=== PATIENT | female | born 2000 | race African-American/Black ===

== ENCOUNTER 2019-05-14 22:14 | Emergency (ER) | payer OTHER ==
[~2019-05-14] VITALS: Ht 154.9 cm; Wt 53.6 kg
--- NOTE | 2019-05-15 | PHYS DOC ---
Past Medical History Past Medical History: No Pertinent History (HECTOR GAONA APRN) Past Surgical History: No Surgical History (HECTOR GAONA APRN) Smoking Status: Never Smoker Alcohol Use: None Drug Use: None (HECTOR GAONA APRN) Attending Signature I have participated in the care of this patient and I have reviewed and agree with all pertinent clinical information above including history, exam, and recommendations. (WILBUR KOO MD) Adult General Chief Complaint Chief Complaint: NAUSEA/VOMITING/[facility] HPI Patient is a 18 year old female who presents with nausea during . The patient states that she is 6 weeks and has been getting OB care an unknown clinic. She states she has been on Zofran but is still getting nausea. Denies any other complaints. Denies abdominal pain, or vaginal bleeding. Complete ROS were reviewed and found to be within normal limits, except as documented in the HPI (HECTOR GAONA APRN) Current Medications Current Medications Current Medications Medications (Trade) Dose Ordered Sig/Joseline Start Time Stop Time Status Last Admin Dose Admin Prochlorperazine Maleate (Compazine) 10 mg 1X ONCE 05/15/19 00:30 2 00:31 DC 05/15/19 00:00 10 MG (WILBUR KOO MD) Allergies Allergies Allergies Coded Allergies Type Severity Reaction Last Updated Verified No Known Drug Allergies 06/04/15 No (WILBUR KOO MD) Physical Exam Physical Exam Constitutional: Well developed, well nourished, no acute distress, non-toxic appearance. [] HENT: Normocephalic, atraumatic, bilateral external ears normal, oropharynx moist, no oral exudates, nose normal. [] Eyes: PERRLA, EOMI, conjunctiva normal, no discharge. [] Neck: Normal range of motion, no tenderness, supple, no stridor. [] Cardiovascular:Heart rate regular rhythm, no murmur [] Lungs & Thorax: Bilateral breath sounds clear to auscultation [] Abdomen: Bowel sounds normal, soft, no tenderness, no masses, no pulsatile masses. [] Skin: Warm, dry, no erythema, no rash. [] Neurologic: Alert and oriented X 3, normal motor function, normal sensory function, no focal deficits noted. [] Psychologic: Affect normal, judgement normal, mood normal. [] (HECTOR GAONA APRN) Current Patient Data Vital Signs Vital Signs Date Time Temp Pulse Resp B/P (MAP) Pulse Ox O2 Delivery O2 Flow Rate FiO2 05/15/19 00:21 85 18 112/73 (86) 94 Room Air 05/14/19 23:40 98.5 98.5 (WILBUR KOO MD) EKG EKG [] (HECTOR GAONA APRN) Radiology/Procedures Radiology/Procedures [] (HECTOR GAONA APRN) Course & Med Decision Making Course & Med Decision Making Pertinent Labs and Imaging studies reviewed. (See chart for details) Will trial Compazine and then see if she is able to keep PO fluids down. Patient does not want IV. Patient does not appear dehydrated or toxic at this time. Patient states Compazine has helped her feel better and she passed PO challenge. Will d/c home. (HECTOR GAONA APRN) Dragon Disclaimer Dragon Disclaimer This electronic medical record was generated, in whole or in part, using a voice recognition dictation system. (HECTOR GAONA APRN) Departure Departure Impression: Primary Impression: Nausea and vomiting during Disposition: HOME, SELF-CARE Condition: STABLE Referrals: CELESTE BAUTISTA MD (PCP) VIRIDIANA RODRIGUEZ MD Patient Instructions: Nausea and Vomiting Additional Instructions: Thank you for visiting [facility]. We appreciate you trusting us with your care. If any additional problems come up don't hesitate to return to visit us. Please follow up with your primary care provider so they can plan add itional care if needed and know about the problem that you had. If symptoms worsen come back to the Emergency Department. Any concerning symptoms that start such as chest pain, shortness of air, weakness or numbness on one side of the body, running high fevers or any other concerning symptoms return to the ER. Scripts Prochlorperazine Maleate (Compazine) 10 Mg Tablet 1 TAB PO Q6HRS PRN for NAUSEA for 10 Days, #30 TAB 0 Refills Prov: HECTOR GAONA APRN 05/15/19 HECTOR GAONA APRN May 15, 2019 00:00 WILBUR KOO MD May 15, 2019 02:22
[2019-05-15] MEDS ORDERED: PROC10TA57 PO (00:19)
[2019-05-15 00:21] VITALS: BP 112/73
[2019-05-15] MEDS ORDERED: PROCHLORPERAZINE 5 MG TABLET. PO ONE (00:30)
== END 2019-05-15 00:21 | disposition home or self-care (01) ==
LOC: ER 22:14
DX: O21.9 Vomiting of pregnancy, unspecified (principal); Z3A.01 Less than 8 weeks gestation of pregnancy
CPT/HCPCS: 99283; Q0164